=== PATIENT | male | born 1985 | race Caucasian/White ===

== ENCOUNTER 2021-09-10 04:31 | Emergency (ER) | payer OTHER, SELFPAY ==
--- NOTE | ~2021-09-10 | CT_ITS ---
EXAMINATION: CT diagnostic chest wo con DATE: 09/10/2021 07:51 INDICATION: MIDSTERNAL CP FOR 1 HR,SOB,COUGH TECHNIQUE: Computed tomography (CT) of the chest was performed without intravenous contrast. Addition al 3D reconstructions utilizing coronal maximum intensity projection (MIP) were performed. Automated exposure control and iterative reconstruction technique were employed. The dose-length product was 84 2.69 mGy-cm. COMPARISON: None FINDINGS: Lungs are clear with no pneumonia, pulmonary edema or other pulmonary infiltrates. No pleural effusio n. Heart size is normal. No pericardial effusion. Thoracic aorta is normal in caliber. No pathologica lly enlarged thoracic lymphadenopathy. Thyroid is unremarkable. Visualized upper abdomen is unremarka ble. Mild thoracic spondylosis with chronic appearing minimal anterior wedging at T11 and T12. IMPRESSION: 1. No acute cardiopulmonary disease. Reviewed, dictated and finalized at location D.
[2021-09-10 06:15] VITALS: BP 132/71; PULSE 70; RESP 14; O2SAT 96
--- NOTE | 2021-09-10 06:26 | PC.NURSE ---
Addendum entered by Yousif Pizano RN 09/10/21 06:28: See down time papers for orders, CT results, IV, medications administration and response, labs, and VS until 614. Original Note: Pt arrived during system down time at 0428. See down time papers for charting.
[2021-09-10 06:39] LABS: Basophils Absolute Auto 0.06 K/mm3 (0.00-0.10); Basophils Percent Auto 0.6 % (0.0-1.0); Eosinophils Absolute Auto 0.11 K/mm3 (0.02-0.50); Eosinophils Percent Auto 1.1 % (1.0-6.0); Hematocrit 45.6 % (40.0-54.0); Hemoglobin 15.4 g/dL (14.0-18.0); Immature Granulocyte Absolute 0.05 K/mm3 (0.00-0.00); Immature Granulocyte Percent A 0.5 % (0.0-0.0); Lymphocytes Absolute Auto 1.02 K/mm3 (1.10-4.50); Lymphocytes Percent Auto 10.1 % (18.0-42.0); Mean Corpuscular HGB Conc 33.8 g/dL (32.0-36.0); Mean Corpuscular Hemoglobin 30.4 pg (27.0-31.0); Mean Corpuscular Volume 90.1 fL (78.0-102.0); Mean Platelet Volume 9.2 fl (8.7-11.0); Monocytes Absolute Auto 0.99 K/mm3 (0.10-0.90); Monocytes Percent Auto 9.8 % (2.0-11.0); Neutrophils Absolute Auto 7.9 K/mm3 (1.7-7.2); Neutrophils Percent Auto 77.9 % (50.0-70.0); Platelet Count Result 257 K/mm3 (150-420); Red Blood Count 5.06 M/mm3 (4.70-6.10); Red Cell Distribution Width 13.4 % (11.6-14.4); White Blood Count 10.1 K/mm3 (4.8-10.8)
[2021-09-10 06:40] LABS: Alanine Aminotransferase 57 U/L (16-63); Albumin Level 3.4 g/dL (3.4-5.0); Alkaline Phosphatase 105 U/L (46-116); Anion Gap 4 mmol/L (8-16); Aspartate Amino Transferase 52 U/L (15-37); Blood Urea Nitrogen 16 mg/dL (7-18); Calcium 8.5 mg/dL (8.5-10.1); Carbon Dioxide 29 mmol/L (21-32); Chloride 105 mmol/L (98-108); Estimated Glomerular Filt Rate > 60; Glucose 131 mg/dL (70-99); Osmolality Calculated 289 mOsm/kg (285-295); Potassium 3.8 mmol/L (3.5-5.1); Sodium 138 mmol/L (136-145); Troponin I 6.9 ng/L (0.00-60.4)
[2021-09-10 06:43] LABS: Lactic Acid Reflex 1.2 mmol/L (0.4-2.0)
--- NOTE | 2021-09-10 06:56 | ECG_ITS ---
Measurements Intervals [place] Rate: 90 P: 40 MA: 150 QRS: 41 QRSD: 105 T: 37 QT: 356 QTc: 438 Interpretive Statements SINUS RHYTHM MINIMAL Q WAVES- INFERIOR LEADS BASELINE ARTIFACT- I, II, III, AVR, AVL, AVF, V3-V6 BORDERLINE ECG Electronically Signed On 09-10-2021 8:02:44 CDT by Dario Bhagat D.O.
--- NOTE | 2021-09-10 06:57 | PC.NURSE ---
Cardiopulmonolgy requested a order to bn
--- NOTE | 2021-09-10 06:58 | PC.NURSE ---
Due to system down time, Cardiopulmonary requested that an EKG order be entered. EKG ordered entered and completed with the time that the EKG was completed.
--- NOTE | 2021-09-10 06:59 | ED.CHESTPAIN ---
HPI - Chest Pain General Chief Complaint: Chest Pain Stated Complaint: CHEST PAIN Time Seen by Provider: 09/10/21 06:03 Source: patient, RN notes reviewed and other (Pt was seen at 0448 per paper documentation.) Mode of arrival: ambulatory Limitations: no limitations History of Present Illness HPI narrative: Anterior to central left chest wall pain on awakening MD complaint: chest pain Onset (ago): hour(s) (1) Timing of current episode: constant Prior episodes: No Onset: during rest Pain location: substernal and left chest Pain radiation: none Severity: moderate Pain scale (0-10): 7 Quality: aching and dull Relieving factors: nothing Exacerbating factors: nothing Treatment prior to arrival: none Related Data Allergies Allergy/AdvReac Type Severity Reaction Status Date / Time No Known Allergies Allergy Verified 09/10/21 06:20 Review of Systems Review of Systems: All systems reviewed & are unremarkable except as noted in HPI and below PMFSH Past Medical History Medical History Atypical chest pain No active medical problems Surgical History Surgical History No history of previous surgery Family History Family History Father Heart disease Mother Diabetes mellitus Social History Social History Smoking status: Never smoker Exam Const: General: healthy appearing and no acute distress Nutritional Appearance: well nourished Orientation/consciousness: patient oriented x3 Limitations: no limitations HENMT: Head: normal to inspection Ears: TM's normal bilaterally and EAC's normal General nose exam: Normal external nose present and Normal nares present Face and sinus: normal facial exam and sinuses nontender Mouth: Yes moist mucous membranes Teeth and gingiva: dentition normal Throat: posterior oropharynx normal Eyes: Conjunctivae: conjunctivae normal Pupils: Equal, round and reactive pupils present EOM: EOMs intact bilaterally Neck: Neck: normal visual inspection Chest: Chest palpation & inspection: normal inspection of the chest Resp: Effort & Inspection: normal respiratory effort Auscultation: clear to auscultation bilaterally Cardio: Rate: regular rate Rhythm: regular rhythm GI: GI Palp: Yes Soft to palpation and No Tenderness to palpation present (GI) Auscultation: normal bowel sounds : General: Yes bladder normal to palpation and Yes no CVA tenderness Back/Spine/Pelvis: Back: no CVA tenderness Skin: General skin exam: normal color Rashes: no rashes Neuro: General: patient oriented x3, moves all extremities, no meningeal signs, no focal motor deficits and CN's II-XI intact bilaterally Gait exam (Neuro): Normal gait present Extrem: General: normal to inspection and no pedal edema Psych: Mental Status: mental status grossly normal Affect: normal affect Attitude: cooperative Course Course Emergency Course: Pt was stable in the ED, pain-free. Reevaluation(s) Reevaluation #1: VSS. Date: 09/10/21 Time: 05:45 Vital Signs Vital signs: Vital Signs Pulse Rate 70 09/10/21 06:15 Respiratory Rate 14 09/10/21 06:15 Blood Pressure 132/71 09/10/21 06:15 Pulse Oximetry 96 09/10/21 06:15 Oxygen Delivery Room Air 09/10/21 06:15 Pulse Rate 70 09/10/21 06:15 Respiratory Rate 14 09/10/21 06:15 Blood Pressure 132/71 09/10/21 06:15 Pulse Oximetry 96 09/10/21 06:15 Oxygen Delivery Room Air 09/10/21 06:15 MDM - Chest Pain Differential Diagnosis Differential diagnosis: Likely atypical chest pain, st elevation myocardial infarction, costochondritis and chest pain Medical Records Data Attestation: I reviewed the patient's medical records. Lab Data Attestation: I reviewed the patient's lab results. Result diagrams:
[2021-09-10 07:10] VITALS: BP 125/80; PULSE 68; RESP 16; O2SAT 96
== END 2021-09-10 07:12 | disposition home or self-care (01) ==
PROVIDERS: Emergency Provider Emergency Medicine; PCP Family Medicine
DX: R07.89 Other chest pain (principal); R09.1 Pleurisy
CPT/HCPCS: 36415; 71250; 80053; 83605; 84484; 85025; 93005; 96372; 99284; J1885

== ENCOUNTER 2022-03-19 15:42 | Outpatient (CLI) | payer OTHER, SELFPAY ==
[2022-03-19 16:57] LABS: HIV 1 P24 AG Negative (Negative); HIV 1/2 AB Negative (Negative)
[2022-03-21 13:19] LABS: RPR Screen Non-Reactive (Non-Reactive)
[2022-03-23 12:05] LABS: Hepatitis B Surface Antigen Nonreactive (Nonreactive); Hepatitis C Signal to Cutoff 0.01 ratio (<1.00); Hepatitis C Virus Antibody Nonreactive (Nonreactive)
== END 2022-03-19 15:43 | disposition home or self-care (01) ==
LOC: CHSLAB 15:45
PROVIDERS: PCP Family Medicine
DX: Z11.9 Encounter for screening for infectious and parasitic diseases, unspecified (principal); Z01.83 Encounter for blood typing
CPT/HCPCS: 36415; 86592; 86703; 86900; 86901